=== PATIENT | male | born 1980 | race Caucasian/White ===

== ENCOUNTER 2022-02-09 12:49 | Inpatient (IN) | payer OTHER ==
[2022-02-09 14:20] VITALS: BMI 24.1
[2022-02-09] MEDS ORDERED: IBUPROFEN 400 MG TABLET (FP) PO PRN (15:35)
[2022-02-09] MEDS ORDERED: BUPRENORPHINE HCL 150 MCG, BUPRENORPHINE HCL 75 MCG BC PRN (15:35)
[2022-02-09] MEDS ORDERED: hydrOXYzine PAMOATE 25 MG CAPSULE (FP) PO PRN (15:35)
[2022-02-09] MEDS ORDERED: IBUPROFEN 600 MG TABLET (FP) PO PRN (15:35)
[2022-02-09] MEDS ORDERED: cloNIDine HCL 0.1 MG TABLET PO ONE (15:35)
[2022-02-09] MEDS ORDERED: BISMUTH SUBSALICYLATE 524 MG/30 ML PO PRN (15:35)
[2022-02-09] MEDS ORDERED: MAGNESIUM HYDROX 2400MG/30ML ORAL SUSPENSION 30 ML CUP PO PRN (15:35)
[2022-02-09] MEDS ORDERED: NALOXONE HCL (KLOXXADO) 8 MG SPRAY NS PRN (15:35)
[2022-02-09] MEDS ORDERED: LOPERAMIDE HCL 2 MG CAPSULE PO PRN (15:35)
[2022-02-09] MEDS ORDERED: ACETAMINOPHEN 325 MG TABLET (FP) PO PRN ×2 (15:35)
[2022-02-09] MEDS ORDERED: BUPRENORPHINE HCL 150 MCG, BUPRENORPHINE HCL 75 MCG BC ONE (15:35)
[2022-02-09] MEDS ORDERED: DICYCLOMINE HCL 10 MG CAPSULE PO PRN (15:35)
[2022-02-09] MEDS ORDERED: diazePAM 5 MG TABLET PO PRN (15:35)
[2022-02-09] MEDS ORDERED: MAG HYDROX/AL HYDROX/SIMETH 30 ML UNIT-DOSE CUP PO PRN (15:35)
[2022-02-09] MEDS ORDERED: ONDANSETRON *ODT* 4 MG TABLET SL PRN (15:35)
[2022-02-09] MEDS ORDERED: POLYETHYLENE GLYCOL (HEALTHYLAX) 3350 17 GM PACKET PO PRN (15:35)
[2022-02-09] MEDS ORDERED: BENZOCAINE/MENTHOL (CHLORASEPTIC ) LOZENGE MM PRN (15:35)
[2022-02-09] MEDS: chlordiazePOXIDE HCL 25 MG CAPSULE PO PRN (18:06)
[2022-02-09] MEDS: PRENATAL VITAMINS W/ FOLIC ACID TABLET (FP) PO SCH (18:08)
[2022-02-09] MEDS: NICOTINE 10 MG CARTRIDGE (INHALER) IH PRN ×2 (18:22→22:50)
[2022-02-09] MEDS ORDERED: cloNIDine HCL 0.1 MG TABLET PO PRN (19:35)
[2022-02-09] MEDS: chlordiazePOXIDE HCL 25 MG CAPSULE PO SCH (22:48)
[2022-02-09] MEDS: THIAMINE HCL 100 MG TABLET (FP) PO SCH (22:48)
[2022-02-09] MEDS: MELATONIN 5 MG TABLETS PO SCH (22:50)
[2022-02-10] MEDS ORDERED: BUPRENORPHINE HCL 150 MCG, BUPRENORPHINE HCL 75 MCG BC PRN
[2022-02-10] MEDS: chlordiazePOXIDE HCL 25 MG CAPSULE PO SCH ×4 (05:41→22:48)
[2022-02-10] MEDS: NICOTINE 10 MG CARTRIDGE (INHALER) IH PRN ×3 (05:44→22:49)
[2022-02-10] MEDS ORDERED: BUPRENORPHINE HCL 150 MCG, BUPRENORPHINE HCL 75 MCG BC SCH (06:00)
[2022-02-10] MEDS ORDERED: cloNIDine HCL 0.1 MG TABLET PO PRN (08:54)
[2022-02-10] MEDS: PRENATAL VITAMINS W/ FOLIC ACID TABLET (FP) PO SCH (10:18)
[2022-02-10] MEDS: METHOCARBAMOL 500 MG TABLET PO PRN (10:18)
[2022-02-10] MEDS: NICOTINE 21 MG/24 HOURS TOPICAL PATCH TD SCH (10:20)
[2022-02-10 12:36] LABS: ALBUMIN 3.6 g/dl (3.4-5.0); BLOOD UREA NITROGEN 16.4 mg/dL (7-18)
[2022-02-10 12:39] LABS: CREATININE 0.6 mg/dL (0.55-1.3)
[2022-02-10 12:40] LABS: BILIRUBIN,TOTAL 0.8 mg/dL (0.2-1)
[2022-02-10 12:41] LABS: TOT PROT 6.6 g/dl (6.4-8.2)
[2022-02-10 12:43] LABS: HEMATOCRIT 38.2 % (35.4-49); HEMOGLOBIN 12.9 GM/dL (11.7-16.9); MCH 31.6 pg (25.7-33.7); MCHC 33.7 g/dl (32.0-35.9); MEAN PLT VOLUME 8.4 fl (7.5-11.1); PLATELET COUNT 180 10^3/uL (134-434); RBC 4.07 M/mm3 (4.00-5.60); RDW 13.5 % (11.9-15.9); WHITE BLOOD COUNT 3.4 K/mm3 (4.0-10.0)
[2022-02-10] MEDS: NICOTINE POLACRILEX 2 MG GUM BUC PRN ×2 (17:49→22:49)
[2022-02-10] MEDS: MELATONIN 5 MG TABLETS PO SCH (22:48)
[2022-02-10] MEDS: THIAMINE HCL 100 MG TABLET (FP) PO SCH (22:48)
[2022-02-11] MEDS: METHOCARBAMOL 500 MG TABLET PO PRN (05:31)
[2022-02-11] MEDS: chlordiazePOXIDE HCL 25 MG CAPSULE PO SCH ×4 (05:31→23:23)
[2022-02-11] MEDS: NICOTINE POLACRILEX 2 MG GUM BUC PRN ×5 (05:33→20:24)
[2022-02-11] MEDS ORDERED: BUPRENORPHINE HCL 450 MCG FILM BC SCH (06:00)
[2022-02-11] MEDS: chlordiazePOXIDE HCL 25 MG CAPSULE PO PRN ×2 (08:47→14:40)
[2022-02-11] MEDS ORDERED: methaDONE HCL 10 MG TABLET (FOR DETOX USE ONLY) PO ONE (10:00)
[2022-02-11] MEDS: PRENATAL VITAMINS W/ FOLIC ACID TABLET (FP) PO SCH (10:21)
[2022-02-11] MEDS: NICOTINE 21 MG/24 HOURS TOPICAL PATCH TD SCH (10:22)
[2022-02-11] MEDS: NICOTINE 10 MG CARTRIDGE (INHALER) IH PRN ×2 (10:23→17:26)
[2022-02-11] MEDS: LACTULOSE 20 GM/30 ML UDC (FOR ORAL USE ONLY) PO SCH ×2 (13:55→23:22)
[2022-02-11] MEDS: THIAMINE HCL 100 MG TABLET (FP) PO SCH (23:23)
[2022-02-11] MEDS: MELATONIN 5 MG TABLETS PO SCH (23:23)
[2022-02-12] MEDS ORDERED: chlordiazePOXIDE HCL 10 MG CAPSULE PO PRN
[2022-02-12] MEDS: chlordiazePOXIDE HCL 10 MG CAPSULE PO SCH ×4 (05:23→22:07)
[2022-02-12] MEDS: NICOTINE POLACRILEX 2 MG GUM BUC PRN ×5 (05:24→20:03)
[2022-02-12] MEDS: LACTULOSE 20 GM/30 ML UDC (FOR ORAL USE ONLY) PO SCH ×3 (05:24→21:27)
[2022-02-12] MEDS ORDERED: BUPRENORPHINE/NALOXONE 4 MG/1 MG FILM PACKET SL SCH (06:00)
[2022-02-12] MEDS: NICOTINE 21 MG/24 HOURS TOPICAL PATCH TD SCH (10:04)
[2022-02-12] MEDS: PRENATAL VITAMINS W/ FOLIC ACID TABLET (FP) PO SCH (10:04)
[2022-02-12] MEDS: NICOTINE 10 MG CARTRIDGE (INHALER) IH PRN ×2 (10:06→20:03)
[2022-02-12] MEDS: THIAMINE HCL 100 MG TABLET (FP) PO SCH (22:07)
[2022-02-12] MEDS: MELATONIN 5 MG TABLETS PO SCH (22:08)
[2022-02-13] MEDS: chlordiazePOXIDE HCL 10 MG CAPSULE PO SCH ×2 (05:39→17:33)
[2022-02-13] MEDS ORDERED: BUPRENORPHINE/NALOXONE 8 MG/2 MG FILM PACKET SL ONE (06:00)
[2022-02-13] MEDS: LACTULOSE 20 GM/30 ML UDC (FOR ORAL USE ONLY) PO SCH ×3 (07:14→21:33)
[2022-02-13 09:16] VITALS: RESP 18
[2022-02-13] MEDS ORDERED: methaDONE HCL 10 MG TABLET (FOR DETOX USE ONLY) PO ONE (10:00)
[2022-02-13] MEDS: NICOTINE 10 MG CARTRIDGE (INHALER) IH PRN ×2 (10:07→14:52)
[2022-02-13] MEDS: NICOTINE 21 MG/24 HOURS TOPICAL PATCH TD SCH (10:07)
[2022-02-13] MEDS: PRENATAL VITAMINS W/ FOLIC ACID TABLET (FP) PO SCH (10:08)
[2022-02-13] MEDS: NICOTINE POLACRILEX 2 MG GUM BUC PRN ×5 (10:10→19:56)
[2022-02-13] MEDS: THIAMINE HCL 100 MG TABLET (FP) PO SCH (21:35)
[2022-02-13] MEDS: MELATONIN 5 MG TABLETS PO SCH (22:00)
[2022-02-14] MEDS ORDERED: chlordiazePOXIDE HCL 10 MG CAPSULE PO ONE (05:00)
[2022-02-14] MEDS: LACTULOSE 20 GM/30 ML UDC (FOR ORAL USE ONLY) PO SCH (05:28)
[2022-02-14 06:37] VITALS: BP 107/67; PULSE 73; TEMP 97.3
== END 2022-02-14 07:00 | disposition home or self-care (01) | DRG 773 ==
LOC: YASAS 12:49 → Y6N 16:32
PROVIDERS: ADMIT Allergy & Immunology; ATTEND Surgery
PROC: HZ2ZZZZ Detoxification Services for Substance Abuse Treatment (ICD-10-PCS; principal; 2022-02-09)
DX: F11.23 Opioid dependence with withdrawal (principal); F10.230 Alcohol dependence with withdrawal, uncomplicated; F14.20 Cocaine dependence, uncomplicated; F17.210 Nicotine dependence, cigarettes, uncomplicated; F41.9 Anxiety disorder, unspecified; F32.A Depression, unspecified; F43.10 Post-traumatic stress disorder, unspecified; Z56.0 Unemployment, unspecified
CPT/HCPCS: 36415; 80053; 82140; 85027; 86780; 87811; C9803-CS; U0003; U0005

== ENCOUNTER 2023-01-17 20:37 | Inpatient (IN) | payer OTHER ==
[2023-01-17 21:36] VITALS: BMI 25.2
[2023-01-17] MEDS ORDERED: chlordiazePOXIDE HCL 25 MG CAPSULE PO PRN (22:25)
[2023-01-17] MEDS ORDERED: IBUPROFEN 600 MG TABLET (FP) PO PRN (22:31)
[2023-01-17] MEDS ORDERED: IBUPROFEN 400 MG TABLET (FP) PO PRN (22:31)
[2023-01-17] MEDS ORDERED: DICYCLOMINE HCL 10 MG CAPSULE PO PRN (22:31)
[2023-01-17] MEDS ORDERED: ACETAMINOPHEN 325 MG TABLET (FP) PO PRN (22:31)
[2023-01-17] MEDS ORDERED: BENZOCAINE/MENTHOL (CHLORASEPTIC ) LOZENGE MM PRN (22:31)
[2023-01-17] MEDS ORDERED: BISMUTH SUBSALICYLATE 524 MG/30 ML PO PRN (22:31)
[2023-01-17] MEDS ORDERED: POLYETHYLENE GLYCOL (HEALTHYLAX) 3350 17 GM PACKET PO PRN (22:31)
[2023-01-17] MEDS ORDERED: MAGNESIUM HYDROX 2400MG/30ML ORAL SUSPENSION 30 ML CUP PO PRN (22:31)
[2023-01-17] MEDS ORDERED: MAG HYDROX/AL HYDROX/SIMETH 30 ML UNIT-DOSE CUP PO PRN (22:31)
[2023-01-17] MEDS ORDERED: guaiFENesin 600 MG TABLET.ER (FP) PO PRN (22:31)
[2023-01-17] MEDS ORDERED: ONDANSETRON *ODT* 4 MG TABLET SL PRN (22:31)
[2023-01-17] MEDS ORDERED: NALOXONE HCL 0.4 MG/ML VIAL IM PRN (22:31)
[2023-01-17] MEDS ORDERED: BENZONATATE 200 MG CAPSULE PO PRN (22:31)
[2023-01-17] MEDS ORDERED: P-EPHED 60MG/TRIPROLIDI 2.5MG TABLET PO PRN (22:31)
[2023-01-17] MEDS ORDERED: NALOXONE HCL (KLOXXADO) 8 MG SPRAY NS PRN (22:31)
[2023-01-17] MEDS ORDERED: METHOCARBAMOL 500 MG TABLET PO PRN (22:31)
[2023-01-17] MEDS ORDERED: LOPERAMIDE HCL 2 MG CAPSULE PO PRN (22:31)
[2023-01-17] MEDS: chlordiazePOXIDE HCL 25 MG CAPSULE PO SCH (23:29)
[2023-01-17] MEDS: NICOTINE POLACRILEX 2 MG GUM BUC PRN (23:32)
[2023-01-18] MEDS: NICOTINE POLACRILEX 2 MG GUM BUC PRN ×5 (03:52→18:03)
[2023-01-18] MEDS: chlordiazePOXIDE HCL 25 MG CAPSULE PO SCH ×4 (05:49→22:25)
[2023-01-18] MEDS: PRENATAL VITAMINS W/ FOLIC ACID TABLET (FP) PO SCH (10:16)
[2023-01-18] MEDS ORDERED: methaDONE HCL 10 MG TABLET PO ONE (10:21)
[2023-01-18 11:54] LABS: CHLORIDE 103 mmol/L (98-107); SODIUM 141 mmol/L (136-145)
[2023-01-18 11:57] LABS: ALBUMIN 3.6 g/dl (3.4-5.0); ANION GAP 8 mmol/L (4-13); BLOOD UREA NITROGEN 20.5 mg/dL (7-18); CO2 31 mmol/L (21-32); GLUCOSE,RANDOM 96 mg/dL (74-106)
[2023-01-18 12:00] LABS: CREATININE 0.7 mg/dL (0.55-1.3); SGOT/AST 28 U/L (15-37); SGPT/ALT 50 U/L (13-61)
[2023-01-18 12:02] LABS: BILIRUBIN,TOTAL 0.2 mg/dL (0.2-1); HEMATOCRIT 37.5 % (35.4-49); HEMOGLOBIN 12.9 GM/dL (11.7-16.9); MCH 32.6 pg (25.7-33.7); MCHC 34.4 g/dl (32.0-35.9); MEAN CELL VOLUME 94.8 fl (80-96); MEAN PLT VOLUME 8.9 fl (7.5-11.1); PLATELET COUNT 127 10^3/uL (134-434); RBC 3.96 M/mm3 (4.00-5.60); RDW 13.6 % (11.9-15.9); TOT PROT 6.2 g/dl (6.4-8.2); WHITE BLOOD COUNT 3.3 K/mm3 (4.0-10.0)
[2023-01-18 12:03] LABS: ALK PHOS 64 U/L (45-117)
[2023-01-18] MEDS: MELATONIN 5 MG TABLETS PO SCH (22:25)
[2023-01-18] MEDS: THIAMINE HCL 100 MG TABLET (FP) PO SCH (22:25)
[2023-01-19] MEDS: NICOTINE POLACRILEX 2 MG GUM BUC PRN ×10 (00:50→21:58)
[2023-01-19] MEDS: chlordiazePOXIDE HCL 25 MG CAPSULE PO SCH ×4 (06:00→22:00)
[2023-01-19] MEDS: PRENATAL VITAMINS W/ FOLIC ACID TABLET (FP) PO SCH (11:01)
[2023-01-19] MEDS ORDERED: methaDONE HCL 10 MG TABLET PO ONE (11:17)
[2023-01-19] MEDS: BACITRACIN 0.9 GM PACKET TP SCH (21:57)
[2023-01-19] MEDS: MELATONIN 5 MG TABLETS PO SCH (21:58)
[2023-01-19] MEDS: THIAMINE HCL 100 MG TABLET (FP) PO SCH (21:58)
[2023-01-20] MEDS ORDERED: chlordiazePOXIDE HCL 10 MG CAPSULE PO PRN
[2023-01-20] MEDS: NICOTINE POLACRILEX 2 MG GUM BUC PRN ×9 (02:30→21:17)
[2023-01-20] MEDS: chlordiazePOXIDE HCL 10 MG CAPSULE PO SCH ×4 (04:56→22:09)
[2023-01-20] MEDS: PRENATAL VITAMINS W/ FOLIC ACID TABLET (FP) PO SCH (10:28)
[2023-01-20] MEDS: BACITRACIN 0.9 GM PACKET TP SCH ×2 (10:28→22:09)
[2023-01-20] MEDS ORDERED: methaDONE HCL 10 MG TABLET PO SCH (11:15)
[2023-01-20] MEDS: MELATONIN 5 MG TABLETS PO SCH (22:09)
[2023-01-20] MEDS: THIAMINE HCL 100 MG TABLET (FP) PO SCH (22:09)
[2023-01-21] MEDS: NICOTINE POLACRILEX 2 MG GUM BUC PRN ×10 (00:02→22:00)
[2023-01-21] MEDS: chlordiazePOXIDE HCL 10 MG CAPSULE PO SCH ×2 (06:06→17:40)
[2023-01-21] MEDS: BACITRACIN 0.9 GM PACKET TP SCH ×2 (09:32→21:59)
[2023-01-21] MEDS: PRENATAL VITAMINS W/ FOLIC ACID TABLET (FP) PO SCH (09:32)
[2023-01-21] MEDS: MELATONIN 5 MG TABLETS PO SCH (21:59)
[2023-01-21] MEDS: THIAMINE HCL 100 MG TABLET (FP) PO SCH (21:59)
[2023-01-22] MEDS: NICOTINE POLACRILEX 2 MG GUM BUC PRN ×2 (01:53→08:33)
[2023-01-22] MEDS ORDERED: chlordiazePOXIDE HCL 10 MG CAPSULE PO ONE (05:00)
[2023-01-22 09:23] VITALS: BP 117/67; PULSE 74; RESP 20; TEMP 97.8
== END 2023-01-22 09:25 | disposition home or self-care (01) | DRG 773 ==
LOC: YASAS 20:37 → Y3N 22:10
PROVIDERS: ADMIT Allergy & Immunology; ATTEND Surgery
PROC: HZ2ZZZZ Detoxification Services for Substance Abuse Treatment (ICD-10-PCS; principal; 2023-01-17)
DX: F10.230 Alcohol dependence with withdrawal, uncomplicated (principal); F14.20 Cocaine dependence, uncomplicated; F11.20 Opioid dependence, uncomplicated; F17.210 Nicotine dependence, cigarettes, uncomplicated; Z59.01 Sheltered homelessness
CPT/HCPCS: 36415; 80053; 80307; 85027; 86780; 87635

== ENCOUNTER 2024-09-11 01:30 | Inpatient (IN) | payer OTHER ==
[2024-09-11 02:04] VITALS: BMI 21.5
[2024-09-11] MEDS ORDERED: POLYETHYLENE GLYCOL (HEALTHYLAX) 3350 17 GM PACKET PO PRN (03:04)
[2024-09-11] MEDS ORDERED: MAGNESIUM HYDROX 2400MG/30ML ORAL SUSPENSION 30 ML CUP PO PRN (03:04)
[2024-09-11] MEDS ORDERED: BENZONATATE 200 MG CAPSULE PO PRN (03:04)
[2024-09-11] MEDS ORDERED: ONDANSETRON *ODT* 4 MG TABLET SL PRN (03:04)
[2024-09-11] MEDS ORDERED: DICYCLOMINE HCL 10 MG CAPSULE PO PRN (03:04)
[2024-09-11] MEDS ORDERED: ACETAMINOPHEN 325 MG TABLET (FP) PO PRN (03:04)
[2024-09-11] MEDS ORDERED: IBUPROFEN 400 MG TABLET (FP) PO PRN (03:04)
[2024-09-11] MEDS ORDERED: guaiFENesin 600 MG TABLET.ER (FP) PO PRN (03:04)
[2024-09-11] MEDS ORDERED: NALOXONE (NARCAN) HCL 4 MG/0.1 ML SPRAY NS PRN (03:04)
[2024-09-11] MEDS ORDERED: BENZOCAINE/MENTHOL (CHLORASEPTIC ) LOZENGE MM PRN (03:04)
[2024-09-11] MEDS ORDERED: hydrOXYzine PAMOATE 25 MG CAPSULE (FP) PO PRN (03:04)
[2024-09-11] MEDS ORDERED: BISMUTH SUBSALICYLATE 524 MG/30 ML PO PRN (03:04)
[2024-09-11] MEDS ORDERED: LOPERAMIDE HCL 2 MG CAPSULE PO PRN (03:04)
[2024-09-11] MEDS ORDERED: MAG HYDROX/AL HYDROX/SIMETH 30 ML UNIT-DOSE CUP PO PRN (03:04)
[2024-09-11] MEDS: IBUPROFEN 600 MG TABLET (FP) PO PRN (08:12)
[2024-09-11] MEDS: METHOCARBAMOL 500 MG TABLET PO PRN (08:12)
[2024-09-11] MEDS: NICOTINE 21 MG/24 HOURS TOPICAL PATCH TD SCH (09:17)
[2024-09-11] MEDS: PRENATAL VITAMINS W/ FOLIC ACID TABLET (FP) PO SCH (09:17)
[2024-09-11] MEDS: NICOTINE POLACRILEX 2 MG GUM BUC PRN (11:55)
[2024-09-11] MEDS: MIRTAZAPINE 15 MG TABLET (FP) PO SCH (22:01)
[2024-09-11] MEDS: THIAMINE 100 MG TABLET PO SCH (22:02)
[2024-09-11] MEDS: MELATONIN 5 MG TABLETS PO SCH (22:02)
[2024-09-12 14:52] LABS: MCHC 33.6 g/dl (32.3-36.5); MEAN CELL VOLUME 95.5 fl (79.0-92.2); MEAN PLT VOLUME 10.5 fl (9.4-12.4); RDW 12.0 % (12.1-15.9)
[2024-09-12 15:27] LABS: CO2 31.0 mmol/L (21-32)
[2024-09-12 15:29] LABS: GLUCOSE,RANDOM 91.0 mg/dL (74-106)
[2024-09-12 15:32] LABS: CREATININE 0.6 mg/dL (0.55-1.3); SGOT/AST 23.0 U/L (15-37); SGPT/ALT 31.0 U/L (13-61)
[2024-09-12 15:33] LABS: ALK PHOS 80.0 U/L (45-117); TOT PROT 6.7 g/dl (6.4-8.2)
[2024-09-14] MEDS: NICOTINE POLACRILEX 2 MG GUM BUC PRN (20:54)
[2024-09-16 17:30] VITALS: RESP 18
[2024-09-17 07:40] VITALS: TEMP 97.6
[2024-09-17 09:17] VITALS: BP 137/67; PULSE 87
== END 2024-09-17 09:24 | disposition home or self-care (01) | DRG 773 ==
LOC: YASAS 01:30 → Y6N 04:05
PROVIDERS: ADMIT Allergy & Immunology; ATTEND Family Medicine Addiction Medicine
PROC: HZ2ZZZZ Detoxification Services for Substance Abuse Treatment (ICD-10-PCS; principal; 2024-09-11)
DX: F11.23 Opioid dependence with withdrawal (principal); F10.230 Alcohol dependence with withdrawal, uncomplicated; F14.20 Cocaine dependence, uncomplicated; F41.8 Other specified anxiety disorders; F17.210 Nicotine dependence, cigarettes, uncomplicated; F43.10 Post-traumatic stress disorder, unspecified; M17.12 Unilateral primary osteoarthritis, left knee
CPT/HCPCS: 36415; 80053; 80305; 80307; 85027; 86780; 87811

== ENCOUNTER 2024-11-07 09:19 | Inpatient (IN) | payer OTHER ==
[2024-11-07 09:34] VITALS: BMI 23.1
[2024-11-07] MEDS ORDERED: BENZONATATE 200 MG CAPSULE PO PRN (10:07)
[2024-11-07] MEDS ORDERED: NALOXONE (NARCAN) HCL 4 MG/0.1 ML SPRAY NS PRN (10:07)
[2024-11-07] MEDS ORDERED: MAGNESIUM HYDROX 2400MG/30ML ORAL SUSPENSION 30 ML CUP PO PRN (10:07)
[2024-11-07] MEDS ORDERED: DICYCLOMINE HCL 10 MG CAPSULE PO PRN (10:07)
[2024-11-07] MEDS ORDERED: BENZOCAINE/MENTHOL (CHLORASEPTIC ) LOZENGE MM PRN (10:07)
[2024-11-07] MEDS ORDERED: guaiFENesin 600 MG TABLET.ER (FP) PO PRN (10:07)
[2024-11-07] MEDS ORDERED: ONDANSETRON *ODT* 4 MG TABLET SL PRN (10:07)
[2024-11-07] MEDS ORDERED: BISMUTH SUBSALICYLATE 524 MG/30 ML PO PRN (10:07)
[2024-11-07] MEDS ORDERED: LOPERAMIDE HCL 2 MG CAPSULE PO PRN (10:07)
[2024-11-07] MEDS ORDERED: MAG HYDROX/AL HYDROX/SIMETH 30 ML UNIT-DOSE CUP PO PRN (10:07)
[2024-11-07] MEDS ORDERED: POLYETHYLENE GLYCOL (HEALTHYLAX) 3350 17 GM PACKET PO PRN (10:07)
[2024-11-07] MEDS ORDERED: ACETAMINOPHEN 325 MG TABLET (FP) PO PRN (10:07)
[2024-11-07] MEDS ORDERED: IBUPROFEN 400 MG TABLET (FP) PO PRN (10:07)
[2024-11-07] MEDS ORDERED: NICOTINE 21 MG/24 HOURS TOPICAL PATCH ONE (11:09)
[2024-11-07] MEDS ORDERED: NICOTINE POLACRILEX 4 MG GUM BUC ONE (11:09)
[2024-11-07] MEDS ORDERED: PRENATAL VITAMINS W/ FOLIC ACID TABLET (FP) PO ONE (11:10)
[2024-11-07] MEDS ORDERED: BUPRENORPHINE/NALOXONE 0.5 MG/0.125 MG FILM ONE (11:10)
[2024-11-07] MEDS: NICOTINE 21 MG/24 HOURS TOPICAL PATCH TD SCH (11:15)
[2024-11-07] MEDS: BUPRENORPHINE/NALOXONE 0.5 MG/0.125 MG FILM SL ONE ×2 (11:15→22:15)
[2024-11-07] MEDS: PRENATAL VITAMINS W/ FOLIC ACID TABLET (FP) PO SCH (11:15)
[2024-11-07] MEDS: NICOTINE POLACRILEX 4 MG GUM BUC PRN (11:18)
[2024-11-07] MEDS: THIAMINE 100 MG TABLET PO SCH (22:15)
[2024-11-07] MEDS: MELATONIN 5 MG TABLETS PO SCH (22:15)
[2024-11-08] MEDS: METHOCARBAMOL 500 MG TABLET PO PRN (10:13)
[2024-11-08] MEDS: IBUPROFEN 600 MG TABLET (FP) PO PRN (10:13)
[2024-11-08] MEDS: BUPRENORPHINE/NALOXONE 0.5 MG/0.125 MG FILM SL SCH (10:17)
[2024-11-08 10:50] LABS: MCHC 32.6 g/dl (32.3-36.5); MEAN CELL VOLUME 98.3 fl (79.0-92.2); MEAN PLT VOLUME 11.3 fl (9.4-12.4); RDW 12.0 % (12.1-15.9)
[2024-11-08 10:54] LABS: GLUCOSE,RANDOM 141.0 mg/dL (74-106); TOT PROT 6.9 g/dl (6.4-8.2)
[2024-11-08 10:55] LABS: CO2 20.0 mmol/L (21-32)
[2024-11-08 10:57] LABS: ALK PHOS 63.0 U/L (40-150)
[2024-11-08 11:00] LABS: CREATININE 0.51 mg/dL (0.55-1.3); SGOT/AST 44.0 U/L (5-34); SGPT/ALT 44.0 U/L (0-55)
[2024-11-09] MEDS: BUPRENORPHINE/NALOXONE 2 MG/0.5 MG FILM PACKET SL SCH (10:37)
[2024-11-10] MEDS: BUPRENORPHINE/NALOXONE 4 MG/1 MG FILM PACKET SL SCH (10:05)
[2024-11-10] MEDS: hydrOXYzine PAMOATE 25 MG CAPSULE (FP) PO PRN (13:07)
[2024-11-11] MEDS: BUPRENORPHINE/NALOXONE 8 MG/2 MG FILM PACKET SL SCH (09:11)
[2024-11-11] MEDS: MIRTAZAPINE 15 MG TABLET (FP) PO SCH (21:39)
[2024-11-12] MEDS: BUPRENORPHINE/NALOXONE 8 MG/2 MG FILM PACKET SL SCH (09:52)
[2024-11-13 09:39] VITALS: BP 122/70; PULSE 79; RESP 16; TEMP 98
== END 2024-11-13 10:15 | disposition other institution (70) | DRG 773 ==
LOC: YASAS 09:19 → SUATTDRO 09:19 → Y3N 10:41
PROVIDERS: ADMIT Student in an Organized Health Care Education/Training Program; ATTEND Counselor Addiction (Substance Use Disorder)
PROC: HZ2ZZZZ Detoxification Services for Substance Abuse Treatment (ICD-10-PCS; principal; 2024-11-07)
DX: F11.23 Opioid dependence with withdrawal (principal); F10.230 Alcohol dependence with withdrawal, uncomplicated; F17.210 Nicotine dependence, cigarettes, uncomplicated; F43.10 Post-traumatic stress disorder, unspecified; F41.8 Other specified anxiety disorders; M17.12 Unilateral primary osteoarthritis, left knee
CPT/HCPCS: 36415; 80053; 80305; 80307; 85027; 86780; 93005; 93010